=== PATIENT | female | born 1970 | race Caucasian/White ===

== ENCOUNTER → 2018-10-28 | Day surgery (SDC) | payer OTHER ==
[2018-10-26 14:14] LABS: Urine Bacteria FEW /hpf (None Seen); Urine Blood Negative /uL (Negative); Urine WBC 2 /hpf (0 - 5)
[2018-10-26 14:21] LABS: Basophils # (auto) 0.1 uL; Eosinophils # (auto) 0.5 uL; Lymphocytes # (auto) 1.3 uL; Monocytes # (auto) 0.7 uL
[2018-10-26 14:24] LABS: Eosinophils % (auto) 9.1 % (0.0-7.0); Hematocrit 34.2 % (36.0-46.0); Hemoglobin 10.8 g/dL (12.2-16.2); Lymphocytes % (auto) 21.7 % (10.0-50.0); Mean Corpuscular Hemoglobin 23.2 pg (28.0-32.0); Mean Corpuscular Hgb Conc. 31.4 g/dL (32.0-36.0); Mean Corpuscular Volume 73.8 fL (80.0-100.0); Monocytes % (auto) 11.3 % (0.0-12.0); Neutrophils # (auto) 3.4 uL; Neutrophils % (auto) 56.9 % (37.0-80.0); Platelet Count (auto) 282 10^3/uL (140-450); Red Blood Cells 4.64 10^6/uL (4.0-5.20); Red Cell Distribution Width 17.5 % (11.8-14.3)
[~2018-10-28] VITALS: Ht 162.6 cm; Wt 90.7 kg
[~2018-10-28] MED LIST: BUPIVACAINE 0.75% INJ 10ML MPV SDV IJ ONE; CLINDAMYCIN 600MG IV 50 ML IV ONE; HYDROmorphone HCL 2 MG/ML VL IV PRN; KETOROLAC TROMETH 30 MG/ML 1ML VIAL IV ONE; METOCLOPRAMIDE HCL 5MG/ml INJ 2ml VIAL IV ONE; MIDAZOLAM HCL 1MG/1ML-2 ML VIAL ONE; NEOMYCIN-BACITRACIN-POLYM 15GM TOP OINT TOP ONE; ONDANSETRON HCL 4 MG/2 ML VIAL ONE; PROPOFOL 10 MG/ML 20 ML IV ONE; SODIUM CHLORIDE LOCK 10 ML ONE; fentaNYL CITRATE 100 MCG/2 ML VL ONE
[2018-10-28 09:51] VITALS: BP 157/83
== END | disposition home or self-care (01) ==
LOC: SUR 06:06
PROVIDERS: ATTEND Podiatrist Foot & Ankle Surgery
DX: M20.12 Hallux valgus (acquired), left foot (principal); M21.612 Bunion of left foot; M21.622 Bunionette of left foot; E66.9 Obesity, unspecified; I10 Essential (primary) hypertension; D64.9 Anemia, unspecified; Z68.34 Body mass index [BMI] 34.0-34.9, adult; Z90.710 Acquired absence of both cervix and uterus
CPT/HCPCS: 28110; 28296; 36415; 73620; 81001; 85025; C1713; C1769; J1170; J2250; J2405; J2704; J3010; J3490; L3260